=== PATIENT | male | born 1955 | race Caucasian/White ===

== ENCOUNTER 2024-05-09 06:28 | Day surgery (SDC) | payer MEDICARE, OTHER, SELFPAY ==
[2024-05-05 10:14] VITALS: BMI 27.2
[2024-05-09] VITALS (10 sets, daily range): BP systolic 115–144; BP diastolic 67–84; PULSE 2–80; BMI 27.2
[2024-05-09 12:50] LABS: Glucose - Point of Care 102 mg/dl (70-99)
--- NOTE | 2024-05-09 14:56 | W.IMMPOSTOP ---
Surgical Immed Post Op Note
-
Primary Surgeon: Vishalfer
Assisting Surgeon: non
Pre-op Diagnosis:BPH
Post-op Diagnosis: same
Procedure Performed: TURP
Anesthesia Type: general
Specimen / Cultures: prostate chips
Estimated Blood Loss: 10cc
Complications: none
Operative Findings: some open venous sinuses at 2:00 position - bleeding controlled with traction
[2024-05-09 15:00] LABS: Glucose - Point of Care 87 mg/dl (70-99)
[2024-05-09 16:43] LABS: Glucose - Point of Care 104 mg/dl (70-99)
--- NOTE | 2024-05-09 16:43 | PTCARENOTE ---
Received patient from PACU via bed around 1600 in stable condition. CBI infusing. Us draining light pink urine. Patient oriented to room. VS stable. Call jean in reach.
[2024-05-09] MEDS: NOVOLOG FLEXPEN-LOW RESISTANCE SC (16:50)
[2024-05-09] MEDS: NSS 1000 IV (17:10)
[2024-05-09] MEDS: LIPITOR 40 MG PO (21:20)
[2024-05-09] MEDS: COZAAR 100 MG PO (21:20)
[2024-05-09] MEDS: VESICARE 5 MG PO (21:20)
[2024-05-09] MEDS: FLOMAX 0.4 MG PO (21:20)
[2024-05-09 21:45] LABS: Glucose - Point of Care 185 mg/dl (70-99)
[2024-05-10] VITALS (8 sets, daily range): BP systolic 109–143; BP diastolic 65–83; PULSE 2–76
[2024-05-10] MEDS: NSS 1000 IV
--- NOTE | 2024-05-10 06:00 | PTCARENOTE ---
CBI clamped per order, patient tolerated well over night.
[2024-05-10 07:14] LABS: Glucose - Point of Care 142 mg/dl (70-99)
[2024-05-10] MEDS: ASPIR LOW (ENTERIC COATED) 81 MG PO (07:32)
[2024-05-10] MEDS: ORETIC 25 MG PO (07:33)
[2024-05-10 07:39] LABS: Hematocrit 43.8 % (39.0-52.0); Hemoglobin 14.6 g/dL (13.0-18.0); Mean Corp Hgb Conc. 33.3 g/dL (33.0-37.0); Mean Corpuscular Hgb 27.5 pg (27.0-31.0); Mean Corpuscular Volume 82.5 fL (80.0-94.0); Mean Platelet Volume 9.9 fL (7.4-10.4); Platelet Count 221 10^3/uL (130-400); Red Blood Cell Count 5.31 10^6/uL (4.70-6.10); Red Cell Dist. Width 15.6 % (11.5-14.5); White Blood Cell Count 11.4 10^3/uL (4.8-10.8)
[2024-05-10] MEDS: NOVOLOG FLEXPEN-LOW RESISTANCE SC (07:52)
[2024-05-10 08:21] LABS: Blood Urea Nitrogen 23 mg/dl (9-20); Calcium 8.3 mg/dl (8.4-10.2); Carbon Dioxide 22 mmol/L (22-30); Chloride 106 mmol/L (98-107); Estimated Creatinine Clearance 85 ml/min; Glucose 129 mg/dl (70-99); Potassium 4.4 mmol/L (3.5-5.1); Sodium 139 mmol/L (135-145); eGFR > 60.00
--- NOTE | 2024-05-10 09:38 | W.PN.URO.CBU ---
Today's Communication / Plan
-
santos out for TOV
Assessment / Plan
-
s/p TURP
santos out for TOV
if urinating and urine clear- home later today
discharge instructions reviewed
Diagnosis
-
Date of Service: May 10, 2024
-
Patient Diagnosis:
TURP 05/09
Subjective
-
pt comfortable
cbi stopped this am- urine light pink
Objective
-
Vital Signs
Temp Pulse Resp BP Pulse Ox
97.7 F 90 16 143/83 98
05/10/24 07:45 05/10/24 07:45 05/10/24 07:45 05/10/24 07:45 05/10/24 07:45
Intake and Output
05/09/24 05/10/24 05/11/24
06:59 06:59 06:59
Intake Total 2550 / 2550
Output Total 3700 / 3700
Balance -1150 / -1150
Intake:
Oral fluids 900 / 900
IV fluids (Total) 1650 / 1650
Output:
True Urine Output from CBI 3700 / 3700
Laboratory Results
05/10/24 06:54
05/10/24 06:54
Review of Systems
-
Constitutional: No Symptoms
Respiratory: No Symptoms
Cardiac: No Symptoms
Physical Exam
-
General - no acute distress
Abdomen - soft, non-tender
Genitalia - normal- santos
[2024-05-10 12:08] LABS: Glucose - Point of Care 210 mg/dl (70-99)
[2024-05-10] MEDS: NOVOLOG FLEXPEN-LOW RESISTANCE 2 UNITS SC (12:32)
--- NOTE | 2024-05-10 12:32 | CM ---
Reviewed the chart notes and spoke with the patient at the bedside. The patient resides with his significant other in a two story home with two steps to enter. The patient reports only DME is a CPAP machine. No VN/SNF in the past. The patient
confirmed his pharmacy of choice is the [facility] [address] [place]. CM continues to be available to patient/family and is monitoring medical plan for needs at discharge.
Plan: Discharge to home when medically stable. Patient's significant other will transport.
--- NOTE | 2024-05-10 17:08 | W.PN.UPDATE ---
Update Note
Progress Note Update
pt voiding- but small amounts of bloody urine with clots
pvr >500cc
3 way santos replaced- irrigated- urine red but no clots
will keep in house- cbi- recehck labs in am
[2024-05-10] MEDS: VALIUM INJECTION 2 MG IV (17:20)
[2024-05-10 17:32] LABS: Glucose - Point of Care 181 mg/dl (70-99)
[2024-05-10] MEDS: NOVOLOG FLEXPEN-LOW RESISTANCE 1 UNITS SC (17:53)
[2024-05-10] MEDS: LIPITOR 40 MG PO (21:10)
[2024-05-10] MEDS: COZAAR 100 MG PO (21:10)
[2024-05-10] MEDS: VESICARE 5 MG PO (21:10)
[2024-05-10] MEDS: FLOMAX 0.4 MG PO (21:10)
[2024-05-10 21:36] LABS: Glucose - Point of Care 172 mg/dl (70-99)
[2024-05-11 03:40] VITALS: PULSE 80
[2024-05-11 07:16] LABS: Glucose - Point of Care 146 mg/dl (70-99)
[2024-05-11] MEDS: NOVOLOG FLEXPEN-LOW RESISTANCE SC (07:17)
[2024-05-11] MEDS: ASPIR LOW (ENTERIC COATED) 81 MG PO (07:19)
[2024-05-11] MEDS: ORETIC 25 MG PO (07:19)
[2024-05-11 07:42] LABS: Hematocrit 46.9 % (39.0-52.0); Hemoglobin 15.8 g/dL (13.0-18.0); Mean Corp Hgb Conc. 33.7 g/dL (33.0-37.0); Mean Corpuscular Hgb 28.4 pg (27.0-31.0); Mean Corpuscular Volume 84.2 fL (80.0-94.0); Mean Platelet Volume 10.5 fL (7.4-10.4); Platelet Count 209 10^3/uL (130-400); Red Blood Cell Count 5.57 10^6/uL (4.70-6.10); White Blood Cell Count 11.4 10^3/uL (4.8-10.8)
[2024-05-11 07:45] VITALS: BP 99/62
--- NOTE | 2024-05-11 07:55 | W.PN.URO.CBU ---
Today's Communication / Plan
-
wean cbi
Assessment / Plan
-
s/p TURP
failed TOV yesterday with recurrent hematuria
hgb stable- urine clearing
plan to wean cbi today- off at midnight and if clear in am- repeat TOV
Diagnosis
-
Date of Service: May 11, 2024
-
Patient Diagnosis:
TURP 05/09
Subjective
-
pt feeling better
urine clearer on moderate drip cbi
Objective
-
Vital Signs
Temp Pulse Resp BP Pulse Ox
98.8 F 93 19 111/63 97
05/10/24 23:31 05/11/24 07:19 05/10/24 23:31 05/11/24 07:19 05/10/24 23:31
Intake and Output
05/10/24 05/11/24 05/12/24
06:59 06:59 06:59
Intake Total 2550 / 2550 2400 / 2400
Output Total 3700 / 3700 7440 / 7440
Balance -1150 / -1150 -5040 / -5040
Intake:
Oral fluids 900 / 900 2400 / 2400
IV fluids (Total) 1650 / 1650
Output:
Urine, Voided 990 / 990
True Urine Output from CBI 3700 / 3700 6450 / 6450
Other:
Number of approximated SMALL 1
amounts of urine
Laboratory Results
05/11/24 05:59
Review of Systems
-
Constitutional: No Symptoms
Respiratory: No Symptoms
Cardiac: No Symptoms
Abdomen/GI: No Symptoms
Physical Exam
-
General - no acute distress
Abdomen - soft, non-tender
Genitalia - normal- [address] way [address]
Skin - warm & dry with no rash
Neuro - AOx3, no motor deficits
[2024-05-11 08:05] LABS: Blood Urea Nitrogen 23 mg/dl (9-20); Calcium 8.8 mg/dl (8.4-10.2); Carbon Dioxide 23 mmol/L (22-30); Chloride 105 mmol/L (98-107); Estimated Creatinine Clearance 76 ml/min; Glucose 152 mg/dl (70-99); Potassium 4.3 mmol/L (3.5-5.1); Sodium 141 mmol/L (135-145); eGFR > 60.00
[2024-05-11 11:31] VITALS: BP 107/73
[2024-05-11 11:40] LABS: Glucose - Point of Care 184 mg/dl (70-99)
[2024-05-11] MEDS: NOVOLOG FLEXPEN-LOW RESISTANCE 1 UNITS SC ×2 (11:40→16:54)
[2024-05-11 15:40] VITALS: BP 125/69
[2024-05-11 16:47] LABS: Glucose - Point of Care 180 mg/dl (70-99)
[2024-05-11 21:24] LABS: Glucose - Point of Care 165 mg/dl (70-99)
[2024-05-11] MEDS: VESICARE 5 MG PO (21:25)
[2024-05-11] MEDS: COZAAR 100 MG PO (21:25)
[2024-05-11] MEDS: FLOMAX 0.4 MG PO (21:25)
[2024-05-11] MEDS: LIPITOR 40 MG PO (21:25)
[2024-05-11 22:44] VITALS: PULSE 85
[2024-05-11 23:19] VITALS: BP 131/81
--- NOTE | 2024-05-12 06:17 | W.PN.UPDATE ---
Update Note
Progress Note Update
pt stable overnight
cbi off since midnight
urine pink in bag- clear in tube
santos removed again for TOV today
[2024-05-12 07:19] LABS: Glucose - Point of Care 185 mg/dl (70-99)
[2024-05-12 07:45] VITALS: BP 94/63
[2024-05-12] MEDS: ASPIR LOW (ENTERIC COATED) 81 MG PO (07:47)
[2024-05-12] MEDS: ORETIC 25 MG PO (07:47)
[2024-05-12] MEDS: NOVOLOG FLEXPEN-LOW RESISTANCE 1 UNITS SC (07:47)
[2024-05-12 08:59] VITALS: BP 124/76
--- NOTE | 2024-05-12 12:36 | W.DS.TRANS ---
DC Summary - [employer]
-
Discharge Instructions:
Discharge Diagnosis/Procedures BPH
Transurethral resection of prostate
Diet No restrictions
Activity No strenuous activity
Additional Activity avoid lifting and straining for 2 weeks
Driving Restrictions As prior to admission
Bathing Restrictions None
Instructions:
Stand-Alone Forms:
Changes to Home Medications: No
Discharge Medications:
DC Medications w/original date entered in [employer]
glimepiride 2 mg tablet 2 mg PO BID 02/24/21
hydrochlorothiazide 25 mg tablet 25 mg PO DAILY 02/24/21
losartan 100 mg tablet 100 mg PO QPM 02/24/21
metformin 1,000 mg tablet 1,000 mg PO BID 02/24/21
omega 6-ugo-lyh-fish oil 300 mg-1,000 mg capsule (Fish Oil) 1 ea PO DAILY 02/24/21
aspirin 81 mg tablet,delayed release 81 mg PO DAILY 05/06/24
atorvastatin 40 mg tablet 40 mg PO QPM 05/06/24
empagliflozin 25 mg tablet (Jardiance) 25 mg PO DAILY 05/06/24
fluticasone propionate 50 mcg/actuation nasal spray,suspension 1 spray intranasal PRN PRN allergies 05/06/24
latanoprost 0.005 % eye drops 1 drp BOTH EYES QPM 05/06/24
multivit,Ca,min-iron 8 mg-folic acid 200 mcg-lycopene 600 mcg tablet (Centrum Men) 1 tab PO DAILY 05/06/24
sitagliptin phosphate 50 mg tablet (Januvia) 50 mg PO QPM 05/06/24
solifenacin 5 mg tablet 5 mg PO QPM 05/06/24
tamsulosin 0.4 mg capsule 0.4 mg PO QPM 05/06/24
Home Medication Changes
Pending Results: Yes (prostate pathology)
[2024-05-12 13:04] VITALS: BP 134/84
[2024-05-12] MEDS: NOVOLOG FLEXPEN-LOW RESISTANCE SC (13:15)
[2024-05-12 21:22] LABS: Hepatitis C Antibody Negative (Negative)
[2024-05-14 10:48] LABS: Glucose - Point of Care 209 mg/dl (70-99)
== END 2024-05-12 14:08 | disposition home or self-care (01) ==
LOC: SDS 06:28
PROVIDERS: Specialist; ATTENDING PHYSICIAN Urology
DX: N40.0 Benign prostatic hyperplasia without lower urinary tract symptoms (principal)
CPT/HCPCS: 52601; 88305; 80048; 82962; 83036; 85027; 86803; 88341; 88342; 94660